=== PATIENT | female | born 1950 | race African-American/Black ===

== ENCOUNTER 2020-11-25 05:25 | Observation (INO) ==
[2020-11-19 11:09] LABS: Basophils % 0.9 % (0.0-0.8); Eosinophils # 0.1 10*3/uL (0.0-0.87); Eosinophils % 1.3 % (0.00-10.9); Hematocrit 39.3 VOL% (35.7-47.0); Hemoglobin 12.5 GM/DL (12.0-16.0); Immature Granulocytes % 0.2 %; Immature Granulocytes Absolute 0.01 #; Lymphocytes # 2.1 10*3/uL (1.4-4.0); Mean Corpuscular HGB Conc 31.8 GM/DL (32-36); Mean Corpuscular Volume 92.7 FL (87-102); Mean Platelet Volume 9.7 FL (9.6-12.0); Monocytes % 11.4 % (1.7-12.7); Neutrophils % 40.2 % (38.7-73.9); Platelet Count 235 T/CUMM (130-400); Red Blood Count 4.24 MC/CUMM (3.8-5.5); Red Cell Distribution Width 12.9 % (9.3-17.3); White Blood Count 4.5 T/CUMM (4-12)
[2020-11-19 11:27] LABS: Calcium 9.3 MG/DL (8.5-10.1); Potassium 3.9 MMOL/L (3.5-5.1)
[2020-11-25] MEDS ORDERED: propofoL 200 MG/20 ML VIAL IV ONE ×2 (05:59→10:23)
[2020-11-25] MEDS ORDERED: LIDOCAINE 2% 5 ML VIAL ONE ×2 (05:59→10:23)
[2020-11-25] MEDS ORDERED: MIDAZOLAM 2 MG/2 ML VIAL ONE (05:59)
[2020-11-25] MEDS ORDERED: fentaNYL 100 MCG/2 ML VIAL ONE ×2 (05:59→10:23)
[2020-11-25] MEDS ORDERED: ROCURONIUM 50 MG/5 ML VIAL IV ONE (05:59)
[2020-11-25] MEDS ORDERED: ceFAZolin 1,000 MG in SYRINGE 1 EACH IV ONE (06:00)
[2020-11-25] MEDS ORDERED: DEXAMETHASONE 4 MG/1 ML VIAL ONE (06:27)
[2020-11-25] MEDS ORDERED: EPINEPHrine 1 MG/ML VIAL ONE (06:27)
[2020-11-25] MEDS ORDERED: BUPIVACAINE 0.5% 50 ML VIAL ONE (06:27)
[2020-11-25] MEDS ORDERED: LACTATED RINGERS 1,000 ML IV SCH (06:30)
[2020-11-25] MEDS ORDERED: GABAPENTIN 400 MG CAPSULE PO ONE (06:30)
[2020-11-25] MEDS ORDERED: FAMOTIDINE 20 MG TABLET PO ONE (06:30)
[2020-11-25] MEDS ORDERED: ACETAMINOPHEN 500 MG TABLET PO ONE (06:30)
[2020-11-25] MEDS ORDERED: DIAZEPAM 5 MG TABLET PO ONE (06:30)
[2020-11-25] MEDS ORDERED: TISSUE ADHESIVE 1 EACH APPLICATOR TOP ONE (06:37)
[2020-11-25] MEDS ORDERED: ISOSULFAN BLUE 5 ML VIAL SUBCUT ONE (06:37)
[2020-11-25] MEDS ORDERED: BUPIVACAINE MPF 0.25% 30 ML VIAL ONE (06:37)
[2020-11-25] MEDS ORDERED: LIDOCAINE MPF 1% /EPI 30 ML VIAL ONE (06:38)
[2020-11-25] MEDS ORDERED: SUGAMMADEX 200 MG/2 ML VIAL IV ONE (07:51)
[2020-11-25] MEDS ORDERED: ePHEDrine 50 MG/ML VIAL ONE ×2 (08:46→10:35)
[2020-11-25] MEDS ORDERED: PHENYLEPHRINE 1 MG/10 ML SYRINGE IV ONE ×2 (08:50→11:16)
[2020-11-25] MEDS ORDERED: SEVOFLURANE 1 UNIT/15 MINUTE INH ONE ×2 (08:51→11:17)
[2020-11-25] MEDS ORDERED: ONDANSETRON 4 MG/2 ML VIAL ONE (08:51)
[2020-11-25] MEDS ORDERED: LACTATED RINGERS 1,000 ML IV ONE ×2 (09:00→11:17)
[2020-11-25] MEDS ORDERED: KETOROLAC 30 MG/1 ML VIAL ONE (09:03)
[2020-11-25] MEDS ORDERED: MORPHINE 4 MG/1 ML VIAL IV PRN (09:07)
[2020-11-25] MEDS ORDERED: ONDANSETRON 4 MG/2 ML VIAL IV PRN (09:07)
[2020-11-25] MEDS ORDERED: PHENYLEPHRINE 10 MG/1 ML VIAL IV ONE (10:52)
[2020-11-25] MEDS ORDERED: SODIUM CHLORIDE 0.9% 1,000 ML IV ONE (11:16)
[2020-11-25] MEDS ORDERED: ETOMIDATE 40 MG/20 ML VIAL IV ONE (11:17)
[2020-11-25] MEDS ORDERED: SODIUM CHLORIDE 0.9% 250 ML IV ONE (11:17)
[2020-11-25 11:28] LABS: Hematocrit 26.6 VOL% (35.7-47.0); Hemoglobin 8.3 GM/DL (12.0-16.0)
[2020-11-25] MEDS ORDERED: SODIUM CHLORIDE 0.9% 1,000 ML IV PRN (11:58)
[2020-11-25 12:30] LABS: INR 1.2; PT Patient Result 13.1 SECS (9.8-11.9); Partial Thromboplastin Time 22.5 SECS (23.9-33.8)
[2020-11-25] MEDS: ceFAZolin 2,000 MG in PREMIX 1 EACH IV SCH ×2 (18:24→20:58)
[2020-11-25 18:36] LABS: Hemoglobin 10.3 GM/DL (12.0-16.0)
[2020-11-25 18:37] LABS: Hematocrit 31.1 VOL% (35.7-47.0)
[2020-11-26] MEDS: ceFAZolin 2,000 MG in PREMIX 1 EACH IV SCH (04:19)
[2020-11-26] MEDS ORDERED: LACTATED RINGERS 500 ML IV ONE ×2 (04:48)
[2020-11-26 05:32] LABS: Basophils % 0.1 % (0.0-0.8); Eosinophils % 0.1 % (0.00-10.9); Hematocrit 27.6 VOL% (35.7-47.0); Immature Granulocytes % 0.3 %; Immature Granulocytes Absolute 0.02 #; Lymphocytes # 1.7 10*3/uL (1.4-4.0); Lymphocytes % 24.3 % (21.3-54.2); Mean Corpuscular HGB Conc 32.6 GM/DL (32-36); Mean Corpuscular Volume 93.2 FL (87-102); Monocytes % 11.2 % (1.7-12.7); Platelet Count 124 T/CUMM (130-400); Red Blood Count 2.96 MC/CUMM (3.8-5.5); Red Cell Distribution Width 13.3 % (9.3-17.3)
[2020-11-26 05:50] LABS: Potassium 3.6 MMOL/L (3.5-5.1)
[2020-11-26] MEDS: LACTATED RINGERS 1,000 ML IV SCH ×3 (06:31→21:42)
[2020-11-26] MEDS: PANTOPRAZOLE 40 MG TABLET PO SCH (08:40)
[2020-11-27] MEDS: LACTATED RINGERS 1,000 ML IV SCH (06:00)
[2020-11-27] MEDS: PANTOPRAZOLE 40 MG TABLET PO SCH (08:18)
[2020-11-27 08:52] LABS: Basophils % 0.5 % (0.0-0.8); Eosinophils # 0.1 10*3/uL (0.0-0.87); Hematocrit 27.2 VOL% (35.7-47.0); Hemoglobin 8.8 GM/DL (12.0-16.0); Immature Granulocytes % 0.3 %; Immature Granulocytes Absolute 0.02 #; Lymphocytes # 1.5 10*3/uL (1.4-4.0); Lymphocytes % 25.7 % (21.3-54.2); Mean Corpuscular HGB Conc 32.4 GM/DL (32-36); Mean Corpuscular Volume 93.8 FL (87-102); Mean Platelet Volume 9.7 FL (9.6-12.0); Monocytes % 8.8 % (1.7-12.7); Neutrophils % 63.7 % (38.7-73.9); Platelet Count 129 T/CUMM (130-400); Red Cell Distribution Width 13.6 % (9.3-17.3); White Blood Count 5.8 T/CUMM (4-12)
[2020-11-27 11:31] VITALS: BP 112/65
== END 2020-11-27 13:56 | disposition home health service (06) ==
LOC: N.OR 05:25 → N.5E 05:25 → N.SDSINP 05:29 → N.5E 10:31
PROVIDERS: ADMIT Surgery; ATTEND Surgery